=== PATIENT | female | born 1965 | race Caucasian/White ===

== ENCOUNTER → 2019-11-05 07:15 | Outpatient (CLI) | payer BC, SELFPAY ==
--- NOTE | ~2019-11-05 | MM_ITS ---
EXAMINATION: MM screening [facility] BI w vaishali HISTORY: Screening mammogram TECHNIQUE: Craniocaudal and mediolateral oblique 3-D tomosynthesis images were obtained and synthetic 2-D images were generated. CAD analysis was submitted and interpreted. COMPARISON: 03/16/2017 diagnostic left digital mammogram 09/15/2016 diagnostic left digital mammogram and limited left breast ultrasound 09/03/2016 bilateral digital screening mammogram BREAST PARENCHYMAL COMPOSITION: FINDINGS: There is a circumscribed 5 mm opacity in the outer mid left breast anteriorly. Diagnostic l eft mammogram and left breast ultrasound examination are recommended. Otherwise there is no evidence of suspicious mass, calcification, or architectural distortion to sugg est malignancy in either breast. There has been no other interval change. IMPRESSION: 1. 5 mm mass in outer mid left breast. 2. Diagnostic left mammogram and left breast ultrasound recommended. BI-RADS Category 0: Incomplete: Needs additional imaging evaluation. Reviewed, dictated and finalized at location A. [place]
== END ==
PROVIDERS: PCP Physician Assistant; Visit Provider Physician Assistant
DX: N63.23 Unspecified lump in the left breast, lower outer quadrant (principal)
CPT/HCPCS: 77063; 77067

== ENCOUNTER → 2019-11-20 07:50 | Outpatient (CLI) | payer BC, SELFPAY ==
--- NOTE | ~2019-11-20 | MMUS_ITS ---
EXAMINATION: MM diagnostic mammo unilat LT, US breast LT limited HISTORY: Follow-up left breast mass TECHNIQUE: Additional 3-D tomosynthesis images of the left breast were performed and synthetic 2-D im ages were generated. CAD analysis was submitted and interpreted. High resolution left breast ultrasou nd was performed. COMPARISON: Comparison to multiple prior studies sequentially, with oldest reviewed study dated 06/27. FINDINGS: MAMMOGRAPHIC FINDINGS: Breast composed of scattered areas of fibroglandular density. There is a benign-appearing intramammar y lymph node in the upper outer quadrant of the left breast. There are no suspicious masses or calcif ications. ULTRASOUND: At 1:00, 4 cm from the nipple, there is an oval hypoechoic mass measuring 3 x 4 x 2 mm with circumscr ibed margins, parallel orientation and no significant posterior features or internal vascularity. Pro minent ducts are noted at 4:00, 3 cm from the nipple. IMPRESSION: 1. Probable benign 4 mm left breast mass by ultrasound at 1:00, 4 cm from the nipple. 2. Recommend 6 month follow-up left breast ultrasound BI-RADS category 3, probably benign findings. Reviewed, dictated and finalized at location A. NATAL TECH IMPRESSION: 1. Probable benign 4 mm left breast mass by ultrasound at 1:00, 4 cm from the n ipple. 2. Recommend 6 month follow-up left breast ultrasound BI-RADS category 3, probably benign findings.
== END ==
PROVIDERS: Visit Provider Physician Assistant
DX: R92.8 Other abnormal and inconclusive findings on diagnostic imaging of breast (principal)
CPT/HCPCS: 76642; 77065

== ENCOUNTER → 2020-07-09 07:46 | Outpatient (CLI) | payer BC, SELFPAY ==
--- NOTE | ~2020-07-09 | US_ITS ---
US breast LT limited INDICATION: Follow-up left breast mass TECHNIQUE: Dedicated left breast ultrasound COMPARISON: 11/20/2019 FINDINGS: The left breast is composed of normal heterogeneous echotexture without focal solid or cyst ic mass. IMPRESSION: 1: Normal limited left breast ultrasound. BI-RADS CATEGORY 1 - NEGATIVE Reviewed, dictated and finalized at location A.
== END ==
PROVIDERS: PCP Physician Assistant; Visit Provider Physician Assistant
DX: N63.20 Unspecified lump in the left breast, unspecified quadrant (principal)
CPT/HCPCS: 76642

== ENCOUNTER → 2021-08-12 14:58 | Outpatient (CLI) | payer BC, SELFPAY ==
--- NOTE | ~2021-08-12 | MM_ITS ---
EXAMINATION: MM screening [facility] BI w vaishali HISTORY: Screening mammogram TECHNIQUE: Craniocaudal and mediolateral oblique 3-D tomosynthesis images were obtained and synthetic 2-D images were generated. CAD analysis was submitted and interpreted. COMPARISON: 11/20/2019, 11/14/2019, 03/16/2017, 09/03/2016 BREAST PARENCHYMAL COMPOSITION: There are scattered areas of fibroglandular density. FINDINGS: There is no evidence of suspicious mass, calcification, or architectural distortion to sugg est malignancy in either breast. There has been no suspicious interval change. IMPRESSION: 1. No mammographic evidence of malignancy. 2. Recommend routine screening mammography in one year. BI-RADS Category 1: Negative Reviewed, dictated and finalized at location A. [employer]
== END ==
PROVIDERS: PCP Family Medicine; Visit Provider Physician Assistant
DX: Z12.31 Encounter for screening mammogram for malignant neoplasm of breast (principal)
CPT/HCPCS: 77063; 77067

== ENCOUNTER → 2022-08-24 13:50 | Outpatient (CLI) | payer BC, SELFPAY ==
--- NOTE | ~2022-08-24 | DEXA_ITS ---
Bone Density Report Name: ANA ROSA PONCE Age: 57 Sex: Female Ethnicity: White Date of : 1965 Indication: postmenopausal; screening for osteoporosis; height loss; Referring Provider: Nneka Almanza Study: Bone densitometry was performed. Exam Date: August 24, 2022 Accession number: [id number] Bone Density: Region BMD T-score Z-score Classification AP Spine (L1-L4) 1.042 0.0 1.3 Normal Femoral Neck (Left) 0.777 -0.6 0.6 Normal Total Hip (Left) 1.052 0.9 1.8 Normal Femoral Neck (Right) 0.817 -0.3 1.0 Normal Total Hip (Right) 1.059 1.0 1.8 Normal Total Hip Mean 1.056 1.0 1.8 Normal World Health Organization criteria for BMD impression classify patients as: Normal (T-score at or above -1.0), Osteopenia (T-score between -1.0 and -2.5), or Osteoporosis (T-score at or below -2.5). 10-year Fracture Risk: FRAX not reported because: All T-scores for Spine Total, Hip Total, Femoral Neck at or above -1.0 Clinical Information Provided by Patient: Patient maximum height was 69 Menopause Age: 46 No regular weight bearing exercise Drinks caffeinated beverages Onset of menses at age 12 Number of children 2 Impression: The patient has normal bone mass. Discussion: BONE DENSITY IS ABOVE THE MINIMUM DESIRABLE LEVEL AT ALL SKELETAL SITES TESTED. This patient?s bone mineral density is above the minimum desirable level (T-score -1.0 or better) at all sites measured. The patient should follow a healthful lifestyle (good nutrition with adequate calcium and vitamin D, and appropriate weight-bearing exercise). Follow-Up: Consider repeating this study in 5 years or sooner if there is some new clinical indication. Reported by: [facility] on 08/24/2022 2:09:00 PM. Reviewed, dictated and finalized at location A. [facility]
== END ==
PROVIDERS: PCP Family Medicine; Visit Provider Physician Assistant
DX: Z78.0 Asymptomatic menopausal state (principal)
CPT/HCPCS: 77080

== ENCOUNTER → 2022-08-26 11:48 | Outpatient (CLI) | payer BC, SELFPAY ==
--- NOTE | ~2022-08-26 | MM_ITS ---
EXAMINATION: MM screening [facility] BI w vaishali HISTORY: Screening mammogram TECHNIQUE: Craniocaudal and mediolateral oblique 3-D tomosynthesis images were obtained and synthetic 2-D images were generated. CAD analysis was submitted and interpreted. COMPARISON: 08/12/2021, 11/20/2019, 11/05/2019 BREAST PARENCHYMAL COMPOSITION: There are scattered areas of fibroglandular density. FINDINGS: RIGHT BREAST: There is a mass in the anterior third of the lower-outer breast. LEFT BREAST: No suspicious mass, calcification, or architectural distortion are identified to suggest malignancy. There has been no suspicious interval change. IMPRESSION: 1. Right breast mass. 2. Additional mammographic views and possible breast ultrasound are recommended. BI-RADS Category 0: Incomplete: Needs additional imaging evaluation. Reviewed, dictated and finalized at location A. [place] REPRESENTATIVE IMPRESSION: 1. Right breast mass. 2. Additional mammographic views and possible breast ultrasound are recommended . BI-RADS Category 0: Incomplete: Needs additional imaging evaluation.
== END ==
PROVIDERS: PCP Family Medicine; Visit Provider Physician Assistant
DX: Z12.31 Encounter for screening mammogram for malignant neoplasm of breast (principal); R92.8 Other abnormal and inconclusive findings on diagnostic imaging of breast
CPT/HCPCS: 77063; 77067

== ENCOUNTER → 2022-09-14 08:20 | Outpatient (CLI) | payer BC, SELFPAY ==
--- NOTE | ~2022-09-14 | MMUS_ITS ---
EXAMINATION: MM diagnostic [facility] RT w vaishali, US breast RT limited HISTORY: Follow-up right breast mass TECHNIQUE: Additional 3-D tomosynthesis images of the right breast were performed and synthetic 2-D i mages were generated. CAD analysis was submitted and interpreted. High resolution Limited right breas t ultrasound was performed. COMPARISON: Comparison to multiple prior studies sequentially, with oldest reviewed study dated 11/05. BREAST PARENCHYMAL COMPOSITION: BREAST PARENCHYMAL COMPOSITION: There are scattered areas of fibroglandular density. FINDINGS: MAMMOGRAPHIC FINDINGS: There is a small 6 mm mass lower outer quadrant of the right breast with areas of central lucency. Th ere are no suspicious calcifications or architectural distortion. ULTRASOUND: Limited right breast ultrasound: There are mildly prominent ducts in the periareolar location at the 8-9:00 position. No discrete solid or cystic mass. IMPRESSION: 1. Right breast mass, lower outer quadrant measuring 6 mm without sonographic correlate. This most li jared represents a benign intramammary lymph node or focally dilated duct. 2. Recommend 6 month follow-up diagnostic right mammogram and ultrasound BI-RADS category 3, probably benign findings. Reviewed, dictated and finalized at location A. ER IMPRESSION: 1. Right breast mass, lower outer quadrant measuring 6 mm without sonographic c orrelate. This most likely represents a benign intramammary lymph node or focal ly dilated duct. 2. Recommend 6 month follow-up diagnostic right mammogram and ultrasound BI-RADS category 3, probably benign findings.
== END ==
PROVIDERS: PCP Family Medicine; Visit Provider Physician Assistant
DX: N63.10 Unspecified lump in the right breast, unspecified quadrant (principal); R92.8 Other abnormal and inconclusive findings on diagnostic imaging of breast
CPT/HCPCS: 76642; 77061; 77065; G0279

== ENCOUNTER → 2023-03-18 08:44 | Outpatient (CLI) | payer BC, SELFPAY ==
--- NOTE | ~2023-03-18 | MMUS_ITS ---
EXAMINATION: MM diagnostic jeri RT w vaishali, US breast RT limited HISTORY: Six-month follow-up of probable benign right breast 6 mm mass at 8:00 5 cm from nipple TECHNIQUE: Full field and spot ML, MLO and CC 3-D tomosynthesis images of the right breast were perfo rmed and synthetic 2-D images were generated. CAD analysis was submitted and interpreted. High resolu tion lower outer quadrant right breast ultrasound was performed. COMPARISON: 09/14/2022 diagnostic right mammogram and limited right breast ultrasound BREAST PARENCHYMAL COMPOSITION: There are scattered areas of fibroglandular density. FINDINGS: MAMMOGRAPHIC FINDINGS: Approximately 3.4 x 5 mm opacity is again noted in the lower outer quadrant of the right breast, not significant change in appearance since 08/26/2022. No interval suspicious mass, architectural distortion, malignant constipation, skin thickening or ret raction is detected. ULTRASOUND: At C7-8:00 position 4-5 cm from the nipple there is a 4.9 x 2.4 x 4.6 mm circumscribed hypoechoic les ion which may represent duct, septated cyst, less likely lymph node, slightly diminished in size comp ared to 09/14/2022. No internal vascularity or suspicious shadowing is noted with this lesion. IMPRESSION: 1. Benign finding 2. Routine annual mammographic screening is recommended BI-RADS Category 2: Benign finding(s). Reviewed, dictated and finalized at location A. IMPRESSION: 1. Benign finding 2. Routine annual mammographic screening is recommended BI-RADS Category 2: Benign finding(s).
== END ==
PROVIDERS: PCP Family Medicine; Visit Provider Physician Assistant
DX: R92.8 Other abnormal and inconclusive findings on diagnostic imaging of breast (principal)
CPT/HCPCS: 76642; 77061; 77065; G0279

== ENCOUNTER 2025-06-27 13:53 | Outpatient (CLI) | payer BC, SELFPAY ==
--- NOTE | ~2025-06-27 | MM_ITS ---
EXAMINATION: MM screening [facility] BI w vaishali HISTORY: Screening TECHNIQUE: Craniocaudal and mediolateral oblique 3-D tomosynthesis images were obtained and synthetic 2-D images were generated. CAD analysis was submitted and interpreted. COMPARISON: Comparison to multiple prior studies sequentially, with oldest reviewed study dated 11/05/2019. BREAST PARENCHYMAL COMPOSITION: Not dense: There are scattered areas of fibroglandular density. FINDINGS: There is no evidence of suspicious mass, calcification, or architectural distortion to suggest malignancy in either breast. There has been no suspicious interval change. IMPRESSION: 1. No mammographic evidence of malignancy. 2. Recommend routine screening mammography in one year. BI-RADS Category 1: Negative Reviewed, dictated and finalized at location C.
== END 2025-06-27 13:54 | disposition home or self-care (01) ==
LOC: MICIMG 13:54
PROVIDERS: PCP Family Medicine; Visit Provider Family Medicine
DX: Z12.31 Encounter for screening mammogram for malignant neoplasm of breast (principal)
CPT/HCPCS: 77063; 77067